=== PATIENT | male | born 1940 | race Caucasian/White ===

== ENCOUNTER 2020-12-12 20:51 | Emergency (ER) | payer OTHER ==
[~2020-12-12] VITALS: Ht 167.6 cm; Wt 63.5 kg
[2020-12-12] MEDS ORDERED: CANNABIS (20:56)
[2020-12-12] MEDS ORDERED: DICY20TA PO (23:24)
== END 2020-12-12 23:20 | disposition home or self-care (01) ==
LOC: ER 20:51
DX: R10.32 Left lower quadrant pain (principal); C78.7 Secondary malignant neoplasm of liver and intrahepatic bile duct; C78.00 Secondary malignant neoplasm of unspecified lung; C78.5 Secondary malignant neoplasm of large intestine and rectum; C79.72 Secondary malignant neoplasm of left adrenal gland; C79.01 Secondary malignant neoplasm of right kidney and renal pelvis